=== PATIENT | female | born 1955 | race Caucasian/White ===

== ENCOUNTER 2020-03-16 06:16 | Outpatient (CLI) | payer OTHER, SELFPAY ==
[2020-03-16 16:38] LABS: SARS-CoV-2 RNA PCR Negative
== END 2020-03-16 06:17 | disposition home or self-care (01) ==
LOC: ANHCOVIDDT 06:16
PROVIDERS: PCP Internal Medicine; Visit Provider Internal Medicine Gastroenterology
DX: Z01.818 Encounter for other preprocedural examination (principal); Z11.59 Encounter for screening for other viral diseases
CPT/HCPCS: 87635; C9803; U0003

== ENCOUNTER 2020-03-18 01:01 | Day surgery (SDC) | payer OTHER, BC, SELFPAY ==
[2020-03-11 12:38] VITALS: BMI 25.9
[2020-03-18 09:20] VITALS: BP 167/87; PULSE 73; RESP 16; TEMP 36.6; O2SAT 100
[2020-03-18] MEDS: LACTATED RINGERS 1,000 ML 150 ML IV CONT (09:34)
[2020-03-18 09:38] LABS: Glucose Point of Care 94 (65-105)
--- NOTE | 2020-03-18 09:42 | WPDANESEPPF ---
Anes - Initial Pre Proc Eval Procedure: Operation Date: 03/18/20 10:30 Proposed Procedures p Screening Colonoscopy - Asif Villatoro MD Date/Time: 03/18/20 09:42 Surgeon: Asif Villatoro MD Pre Op Diagnosis: neoplasm screening Patient Data Age: 64 Gender: F Height: 5 ft 7 in Weight: 76.6 kg Last Vital Signs Temp 36.6 C 03/18/20 09:20 Pulse 73 03/18/20 09:20 Resp 16 03/18/20 09:20 BP 167/87 H 03/18/20 09:20 Pulse Ox 100 03/18/20 09:20 Allergies Allergy/AdvReac Type Severity Reaction Status Date / Time No Known Allergies Allergy Verified 03/18/20 09:19 Home Medications Medication Instructions Recorded Confirmed Type multivitamin 1 tablet PO DAILY 12/21/19 03/18/20 History omega-3 fatty acids 1,000 mg 1,000 mg PO DAILY 12/21/19 03/18/20 History capsule folic acid 1 mg tablet 2 mg PO DAILY 01/06/20 03/18/20 History ibuprofen 800 mg tablet 800 mg PO TID 01/06/20 03/18/20 History levothyroxine 88 mcg tablet 88 mcg PO DAILY 01/06/20 03/18/20 History metformin 500 mg tablet 500 mg PO .COMPLEX 01/06/20 03/18/20 History methotrexate sodium 2.5 mg tablet 8 mg PO WEEKLY tablet 01/06/20 03/18/20 History rosuvastatin 40 mg tablet 20 mg PO DAILY 01/06/20 03/18/20 History spironolactone 100 mg tablet 100 mg PO DAILY 01/06/20 03/18/20 History zolpidem 10 mg tablet 10 mg PO ONCE PRN #30 tablet 01/07/20 03/18/20 Rx magnesium 30 mg PO DAILY 03/14/20 03/18/20 History Laboratory Tests 03/18/20 09:34 POC Capillary Glucose 94 mg/dl mg/dl (65-105) Patient hx anesthesia problems: none Family hx anesthesia problems: none PMFSH Family History Family History Mother Family history of osteoarthritis Family history of heart disease in male family member before age 55 Grandparent Family history of malignant neoplasm of breast Family history of coronary artery disease Father Family history of coronary artery disease Social History Social History Smoking status: Never smoker Second hand tobacco smoke exposure: No Alcohol intake: current Anes - Eval Final PreProcedure Day of Procedure 03/18/20 09:42 Patient weight: overweight Heart: regular rate and rhythm Lungs: clear to auscultation Airway: Mallampati scale class II Neurological: other (alert) Last oral intake: >/= 8 hours ASA classification: III Emergent: no Anesthetic plan: proceed Anesthesia type and monitoring: general GIVS and standard monitoring Informed Consent: The patient's anesthetic plan and its attendant risks and benefits were discussed with the patient/family/POA. Questions were solicited and answers provided to the satisfaction of the patient/family/POA.
--- NOTE | 2020-03-18 10:02 | PM.HPGS ---
History of Present Illness History of Present Illness Consent: Risks, benefits, and alternatives have been discussed and questions answered. Patient agrees to proceed with procedure. Chief complaint: neoplasm screening Narrative: Vamshi Navas is a 64 year old female Having screening colonoscopy [facility] Family History Family History Mother Family history of osteoarthritis Family history of heart disease in male family member before age 55 Grandparent Family history of malignant neoplasm of breast Family history of coronary artery disease Father Family history of coronary artery disease Social History Social History Smoking status: Never smoker Second hand tobacco smoke exposure: No Alcohol intake: current Meds Home Medications and Allergies Home Medications Medication Instructions Recorded Confirmed Type multivitamin 1 tablet PO DAILY 12/21/19 03/18/20 History omega-3 fatty acids 1,000 mg 1,000 mg PO DAILY 12/21/19 03/18/20 History capsule folic acid 1 mg tablet 2 mg PO DAILY 01/06/20 03/18/20 History ibuprofen 800 mg tablet 800 mg PO TID 01/06/20 03/18/20 History levothyroxine 88 mcg tablet 88 mcg PO DAILY 01/06/20 03/18/20 History metformin 500 mg tablet 500 mg PO .COMPLEX 01/06/20 03/18/20 History methotrexate sodium 2.5 mg tablet 8 mg PO WEEKLY tablet 01/06/20 03/18/20 History rosuvastatin 40 mg tablet 20 mg PO DAILY 01/06/20 03/18/20 History spironolactone 100 mg tablet 100 mg PO DAILY 01/06/20 03/18/20 History zolpidem 10 mg tablet 10 mg PO ONCE PRN #30 tablet 01/07/20 03/18/20 Rx magnesium 30 mg PO DAILY 03/14/20 03/18/20 History Allergies Allergy/AdvReac Type Severity Reaction Status Date / Time No Known Allergies Allergy Verified 03/18/20 09:19 Vital Signs Vital Signs - 24 hr 03/18/20 09:20 Temperature 36.6 C Pulse Rate 73 Respiratory Rate 16 Blood Pressure 167/87 H Pulse Oximetry 100 Exam Resp: Auscultation: clear to auscultation bilaterally Cardio: Rate: regular rate Rhythm: regular rhythm GI: GI Palp: Yes Soft to palpation and No Tenderness to palpation present (GI) Assessment and Plan Assessment and plan (1) Colon cancer screening: Code(s): Z12.11 - Encounter for screening for malignant neoplasm of colon Status: Acute Assessment and Plan: Colonoscopy with possible biopsy or polypectomy or cautery or injection of substances.
[2020-03-18 10:50] VITALS: BP 93/56; PULSE 62; RESP 21; O2SAT 97
[2020-03-18 11:00] VITALS: BP 122/68; PULSE 65; RESP 17; O2SAT 100
[2020-03-18 11:10] VITALS: BP 133/66; PULSE 57; RESP 17; O2SAT 100
== END 2020-03-18 11:30 | disposition home or self-care (01) ==
PROVIDERS: PCP Internal Medicine; Visit Provider Internal Medicine Gastroenterology
PROC: 0DJD8ZZ Inspection of Lower Intestinal Tract, Via Natural or Artificial Opening Endoscopic (ICD-10-PCS; CPT 45378; principal; 2020-03-18 10:30)
DX: Z12.11 Encounter for screening for malignant neoplasm of colon (principal); K57.30 Diverticulosis of large intestine without perforation or abscess without bleeding; Z79.84 Long term (current) use of oral hypoglycemic drugs; Z79.1 Long term (current) use of non-steroidal anti-inflammatories (NSAID)
CPT/HCPCS: 45378; J2704; J7120

== ENCOUNTER 2020-07-07 07:48 | Outpatient (CLI) | payer OTHER, BC, SELFPAY ==
[2020-07-07 09:20] LABS: Basophils Percent Auto 0.6 % (0.2-1.2); Eosinophils Absolute Auto 0.2 K/mm3 (0-0.3); Eosinophils Percent Auto 2.9 % (0-4.4); Hematocrit 41.3 % (37.0-47.0); Immature Granulocyte Absolute 0.02 K/mm3 (0.00-0.031); Immature Granulocyte Percent A 0.3 % (0-0.5); Lymphocytes Absolute Auto 1.64 K/mm3 (0.9-3.2); Lymphocytes Percent Auto 24.1 % (18.3-44.2); Mean Corpuscular HGB Conc 33.9 g/dl (32-36); Mean Corpuscular Hemoglobin 31.6 pg (26-34); Mean Corpuscular Volume 93.2 fl (80-100); Mean Platelet Volume 9.1 fl (7.4-10.4); Monocytes Absolute Auto 0.5 K/mm3 (0.1-0.6); Monocytes Percent Auto 6.9 % (2.6-8.5); Neutrophils Absolute Auto 4.4 K/mm3 (1.3-6.7); Neutrophils Percent Auto 65.2 % (45.5-73.1); Platelet Count Result 334 k/mm3 (150-375); Red Blood Count 4.43 M/mm3 (4.2-5.4); Red Cell Distribution Width 13.3 % (11.5-14.5); White Blood Count 6.8 K/mm3 (4.5-10.0)
[2020-07-07 09:24] LABS: Add Urine Microscopic? YES; Appearance Urine Clear (Clear); Bilirubin Urine Negative (Negative); Blood Urine Negative (Negative); Color Urine Yellow (Yellow); Glucose Urine UA Negative (Negative); Ketones Urine Negative (Negative); Leukocyte Esterase Ur Negative LEU/UL (Negative); Nitrate Urine Negative (Negative); Protein Urine 1+ mg/dL (Negative); RBC Urine 0-2 /hpf (0-2); Specific Grav Ur 1.017 (1.001-1.035); Squamous Epithelial Cell Urine Rare /hpf (Few); Urobilinogen Urine Negative mg/dL (<2.0); WBC Urine 0-3 /hpf
[2020-07-07 09:30] LABS: Urine Cotinine NEGATIVE
[2020-07-07 09:31] LABS: Albumin Level 4.7 g/dL (3.5-5.1); Anion Gap 8 mmol/L (8-16); Blood Urea Nitrogen 15 mg/dL (7-17); Calcium 9.6 mg/dL (8.4-10.2); Carbon Dioxide 27 mmol/L (22-30); Chloride 102 mmol/L (98-107); Estimated Glomerular Filt Rate > 60; Glucose 145 mg/dL (65-105); Prothrombin Time 12.5 Seconds (11.1-14.7); Sodium 137 mmol/L (137-145)
[2020-07-07 09:32] LABS: Partial Thromboplastin Time 25.3 SECONDS (22.3-36.8)
== END 2020-07-07 07:49 | disposition home or self-care (01) ==
LOC: ANHSURGERY 07:51
PROVIDERS: PCP Internal Medicine; Visit Provider Orthopaedic Surgery
DX: M16.12 Unilateral primary osteoarthritis, left hip (principal); Z01.812 Encounter for preprocedural laboratory examination
CPT/HCPCS: 36415; 80048; 80307; 81001; 82040; 85025; 85610; 85730; 86850; 86900; 86901; 87081

== ENCOUNTER 2020-07-18 00:10 | Outpatient (CLI) | payer OTHER, BC, SELFPAY ==
[2020-07-18 16:39] LABS: SARS-CoV-2 RNA PCR Negative
== END 2020-07-18 00:11 | disposition home or self-care (01) ==
LOC: ANHCOVIDDT 00:10
PROVIDERS: PCP Internal Medicine; Visit Provider Orthopaedic Surgery
DX: Z01.812 Encounter for preprocedural laboratory examination (principal); Z20.828 Contact with and (suspected) exposure to other viral communicable diseases
CPT/HCPCS: 87635; C9803; U0003

== ENCOUNTER 2020-07-20 10:57 | Inpatient (IN) | payer BC, SELFPAY ==
[2020-07-07 08:14] VITALS: BMI 27.5
[2020-07-07 09:00] VITALS: BP 122/74; PULSE 80; RESP 16; TEMP 36.6; O2SAT 99
--- NOTE | 2020-07-19 17:40 | WPDANESEPP ---
Anes - Eval Pre Procedure Procedure: Operation Date: 07/20/20 07:30 Proposed Procedures p Left Total Hip Arthroplasty - Jackson Eastman MD Date/Time: 07/19/20 17:40 Pre Op Diagnosis: Left Hip DJD Patient Data Age: 65 Gender: F Height: 5 ft 6 in Weight: 77.3 kg Last Vital Signs Temp 97.8 F 07/07/20 09:00 Pulse 80 07/07/20 09:00 Resp 16 07/07/20 09:00 BP 122/74 07/07/20 09:00 Pulse Ox 99 07/07/20 09:00 Allergies Allergy/AdvReac Type Severity Reaction Status Date / Time No Known Allergies Allergy Verified 07/07/20 10:01 Home Medications Medication Instructions Recorded Confirmed Type multivitamin 1 tablet PO DAILY 12/21/19 07/13/20 History omega-3 fatty acids 1,000 mg 1,000 mg PO DAILY 12/21/19 07/13/20 History capsule folic acid 1 mg tablet 2 mg PO DAILY 01/06/20 07/13/20 History ibuprofen 800 mg tablet 800 mg PO TID 01/06/20 07/13/20 History methotrexate sodium 2.5 mg tablet 8 mg PO WEEKLY tablet 01/06/20 07/13/20 History spironolactone 100 mg tablet 100 mg PO DAILY 01/06/20 07/13/20 History magnesium 30 mg PO DAILY 03/14/20 07/13/20 History cholecalciferol (vitamin D3) 100 100 mcg PO DAILY 05/03/20 07/13/20 History mcg (4,000 unit) capsule flaxseed oil 1,000 mg capsule 1,000 mg PO DAILY 05/03/20 07/13/20 History chlorhexidine gluconate 4 % 1 applic TOPICAL ONCE #237 ml 05/12/20 07/13/20 Rx topical liquid diclofenac sodium [Voltaren] 2 g TOPICAL BID 07/07/20 07/13/20 History melatonin 3 mg PO HS PRN 07/07/20 07/13/20 History levothyroxine 88 mcg tablet 88 mcg PO DAILY #90 tablet 07/13/20 07/13/20 Rx metformin 500 mg tablet 500 mg PO .COMPLEX #270 tablet 07/13/20 07/13/20 Rx rosuvastatin 40 mg tablet 20 mg PO DAILY #90 tablet 07/13/20 07/13/20 Rx zolpidem 10 mg tablet 10 mg PO PRN PRN #30 tablet 07/13/20 07/13/20 Rx Patient hx anesthesia problems: none Family hx anesthesia problems: none [facility] Past Medical History Medical History (Updated 07/19/20 @ 17:41 by Sarabjit Morris CRNA) Adult hypothyroidism Arthritis Degenerative joint disease of left hip High cholesterol Left hip pain Mixed hyperlipidemia Ptosis of both eyelids Rheumatoid arthritis Status post hysteroscopy Type 2 diabetes mellitus without complication, with no history of insulin use Family History Family History Mother Family history of osteoarthritis Family history of heart disease in male family member before age 55 Grandparent Family history of malignant neoplasm of breast Family history of coronary artery disease Father Family history of coronary artery disease Other Diabetes mellitus Heart disease Social History Social History Smoking status: Never smoker Second hand tobacco smoke exposure: No Additional smoking assessment comments: DENIES ANY FORM OF TOBACCO USE Alcohol intake: current Drinks per week: 4 Substance use: never Spiritual care concerns: No Exam Day of Procedure 07/19/20 17:40
[2020-07-20] VITALS (12 sets, daily range): BP systolic 96–159; BP diastolic 51–77; PULSE 63–88; RESP 12–21; TEMP 36–36.9; O2SAT 100; BMI 27.8
--- NOTE | ~2020-07-20 | XR_ITS ---
EXAMINATION: XR hip LT 1V DATE: 07/20/2020 10:12 INDICATION: Left hip arthroplasty TECHNIQUE: AP view of the left hip FINDINGS: There is a left total hip arthroplasty in expected position. Subcutaneous gas with soft ti ssue swelling are consistent with recent surgery. IMPRESSION: 1. Recent left total hip arthroplasty. Reviewed, dictated and finalized at location B.
[2020-07-20] MEDS: LACTATED RINGERS 1,000 ML 30 ML IV CONT ×2 (06:36→10:00)
[2020-07-20] MEDS: KETOROLAC 15 MG/ML VIAL (*BKC) IV PUSH (06:36)
[2020-07-20] MEDS: ACETAMINOPHEN 500 MG TABLET 1000 MG PO (06:36)
[2020-07-20] MEDS: TRANEXAMIC ACID 1,000MG/ISO100 1,000 MG/100 ML BAG 200 MG IVPB (06:37)
--- NOTE | 2020-07-20 06:51 | WPDANESEFPP ---
Anes - Eval Final PreProcedure Day of Procedure 07/20/20 06:51 Patient weight: overweight Heart: regular rate and rhythm Lungs: clear to auscultation and normal air movement Airway: Mallampati scale class III Neurological: alert and oriented Last oral intake: >/= 8 hours ASA classification: III Emergent: no Anesthetic plan: proceed Anesthesia type and monitoring: general ETT and standard monitoring Informed Consent: The patient's anesthetic plan and its attendant risks and benefits were discussed with the patient/family/POA. Questions were solicited and answers provided to the satisfaction of the patient/family/POA.
[2020-07-20 06:52] LABS: Glucose Point of Care 142 (65-105)
--- NOTE | 2020-07-20 07:14 | WPDHPUPDATE1 ---
History and Physical Update Update Date/Time: 07/20/20 07:14 History and Physical has been reviewed, including an updated exam of the patient. There are NO changes in the patient's condition. Risks, benefits, and alternatives have been discussed and questions answered. Patient agrees to proceed with procedure.
[2020-07-20] MEDS: ceFAZolin 2 GM/D5W 50 ML 2 GM/50 ML BAG IVPB ×3 (07:33→23:33)
--- NOTE | 2020-07-20 10:08 | SUR.PHASEI ---
1007 1 VIEW XRAY TAKEN OF LT HIP.
--- NOTE | 2020-07-20 10:14 | PM.PROC ---
Procedure Note - Detailed Date of procedure: 07/20/20 Pre-op diagnosis: Left Hip DJD LEFT HIP DJD Post-op diagnosis: same Procedure performed: LEFT AUTUMN Description of procedure: THE PATIENT WAS TAKEN TO THE OPERATING ROOM IN STABLE CONDITION. SHE WAS PLACED IN THE LATERAL DECUBITUS AND THE LEFT LOWER EXTREMITY WAS PREPPED AND DRAPED IN THE STERILE FASHION. INCISION WAS MADE IN THE POSTERIOR LATERAL SIDE OF THE HIP, DOWN TO THE FASCIA LAYER. THE FASCIA WAS INCISED. THE HIP WAS EXPOSED. THE SHORT EXTERNAL ROTATORS WERE EXPOSED AND THE SCIATIC NERVE WAS VISUALIZED. THE CAPSULE WAS INCISED EXPOSING THE HIP JOINT. THE HIP WAS DISLOCATED. AN OSTEOTOMY WAS MADE TO THE FEMORAL NECK ABOUT 1 CM PROXIMAL TO THE LESSER TROCHANTER. THE ACETABULUM WAS EXPOSED. THERE WAS SEVERE DJD SEEN. THE ACETABULUM WAS REAMED TO 49 MM. A 49 MM TRIAL WAS PLACED IN 35 DEG OF ABDUCTION AND ANTEVERSION WAS IN ALIGNMENT WITH THE TRANS ACETABULAR LIGAMENT. THE FIT WAS EXCELLENT. THE TRIAL WAS REMOVED. A 50 MM BIOMET G7 COMPONENT WAS THEN TAPPED IN TO PLACE IN 35 DEG OF ABDUCTION AND ANTEVERSION IN ALIGNMENT WITH THE TRANSVERSE ACETABULAR LIGAMENT. THE ACETABULAR LINER WAS PLACED AND CHECKED FOR STABILITY. NEXT THE FEMUR WAS PREPARED WITH INITIAL CANAL FINDER THEN SEQUENTIAL REAMING AND THEN BROACHING TILL AN 11 BROACH FIT WELL IN 15 OF ANTE VERSION. A +3 STANDARD OFFSET NECK WITH 36 MM HEAD TRIAL WAS PLACED. THE JARED TEST WAS EXCELLENT AND THE STABILITY IN FLEXION AND ROTATION WAS EXCELLENT. LEG LENGTHS WERE GROSSLY EQUAL. TRIALS WERE REMOVED. A BIOMET BIMETRIC 11 STEM WAS PLACED WITH A STANDARD OFFSET NECK. THE FIT WAS EXCELLENT IN 15 DEG OF ANTEVERSION. A +3 CERAMIC 36 MM FEMORAL HEAD WAS PLACED. THE HIP WAS TRIALED AND THE STABILITY WAS EXCELLENT WERE THE LEG LENGTHS AND THE SCHUK TEST. THE WOUND WAS IRRIGATED WITH STERILE BETADINE AND WATER FOR 3 MIN. THEN WASHED AGAIN. THE CAPSULE AND THE EXTERNAL ROTATORS WERE APPROXIMATED WITH NUMBER 1 VICRYL. THE FASCIA WITH No 2 QUIL AND THE SUB CUTANEOUS LAYER WITH 2-0 ABSORBABLE SUTURE WITH A RUNNING 3-0 SUBCUTICULAR LAYER WELL. DERMABOND WAS PLACED AND STERILE DRESSING WAS APPLIED. PATIENT WAS PLACED BACK ON TO THE SUPINE POSITION AND WAS EXTUBATED. Anesthesia: GETA Surgeon: Jackson Eastman MD Estimated blood loss (mL): 450 Drains: No Complications: No immediate complications Condition: stable Disposition: PACU
[2020-07-20 10:18] LABS: Glucose Point of Care 169 (65-105)
--- NOTE | 2020-07-20 11:03 | ADMGEN ---
This patient, Vamshi Navas, was admitted to 2 Medical Room 253-01. Patient/family oriented to hospital policies and general routines including ID bracelet, bed and alarms, visiting hours, pain management, procedures, bathroom and other care routines, personal items, smoking policy, room service/diet, and visiting hours. Valuables list has been completed. Information on how to activate the Rapid Response Team has been discussed. Patient/Family are encouraged to report perceived risks to care and to ask questions if they do not understand what they are told or what they should do.
[2020-07-20 11:21] LABS: Hematocrit 36.4 % (37.0-47.0); Hemoglobin 12.7 g/dL (12.0-15.0)
[2020-07-20] MEDS: HYDROcodone/acetaminophen (*CRX) 7.5-325 MG TABLET 1 TAB PO ×3 (11:50→21:18)
[2020-07-20] MEDS: SODIUM CHLORIDE 0.9% IV 1,000 ML 125 ML IV CONT (11:50)
--- NOTE | 2020-07-20 13:06 | PM.IMCN ---
Assessment and Plan Assessment and plan (1) History of total left hip arthroplasty: Code(s): Z96.642 - Presence of left artificial hip joint Status: Acute Assessment and Plan: Patient has bilateral SCDs on. DVT prophylaxis per ortho. Postop care per Ortho. Pain management per Ortho. (2) Rheumatoid arthritis: Code(s): M06.9 - Rheumatoid arthritis, unspecified Status: Chronic Assessment and Plan: Patient has a operations administrative assistant that she follows. She is on methotrexate. (3) Adult hypothyroidism: Code(s): E03.9 - Hypothyroidism, unspecified Status: Chronic Assessment and Plan: Continue with Synthroid. (4) Hypothyroidism: Code(s): E03.9 - Hypothyroidism, unspecified Status: Chronic (5) Mixed hyperlipidemia: Code(s): E78.2 - Mixed hyperlipidemia Status: Chronic Assessment and Plan: Continue with rosuvastatin (6) Acne: Code(s): L70.9 - Acne, unspecified Status: Chronic Assessment and Plan: continue spironolactone. HPI Data of Consult Consult date: 07/20/20 Requesting Physician: Jackson Eastman MD Primary Care Provider: Jc Durham DO Consult Narrative Narrative: Vamshi Navas is a 65 year old female Who has a history of having rheumatoid arthritis. The patient has been having some problems with her left hip clicking for at least 2 years now. The patient stated that she tried some exercises at 1st. She saw her operations administrative assistant who suggested some exercises because he felt like she was having some bursitis in the beginning. After several months she decided was not bursitis and she followed up with her primary care doctor who then took x-rays discovered that she had severe osteoarthritis. 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 She has not been exposed to covid 19. She has had a full surgical clearance. Please see the operative report for today she had a left total hip arthroplasty per Dr. Eastman today posterior procedure. I thank Dr. Eastman for the opportunity to consult on this patient. The date of service 07/20/2020 Review of Systems Review of Systems: All systems reviewed & are unremarkable except as noted in HPI and below Constitutional: Constitutional: Reports as per HPI and Reports no additional constitutional complaints Eyes: Eyes: Reports as per HPI and Reports no additional eye complaints ENT: Reports system reviewed and no additional complaints, except as documented and Reports Normal hearing present Cardiovascular: Cardiovascular: Reports no additional cardiovascular complaints Respiratory: Respiratory: Reports no additional respiratory complaints and Reports no additional respiratory complaints Gastrointestinal: Gastrointestinal: Reports as per HPI and Reports no additional gastrointestinal complaints Musculoskeletal: Musculoskeletal: Reports no additional musculoskeletal complaints Integumentary/Breasts: Skin/Breast: Reports system reviewed and no additional complaints, except as docu and Reports as per HPI Neurologic: Reports system reviewed and no additional complaints, except as documented, Reports as per HPI and Reports Normal hearing present Psychiatric: Psychiatric: Reports no additional psychiatric complaints and Reports as per HPI Endocrine: Endocrine: Reports no additional endocrine complaints Hematologic/Lymphatic: Hematologic/Lymphatic: Reports no additional hematologic/lymphatic complaints Allergic/Immunologic: Allergic/Immunologic: Reports no additional allergic/immunologic complaints [facility] Past Medical History Medical History (Updated 07/20/20 @ 13:13 by Any Arriaga NP) Acne Adult hypothyroidism Arthritis Degenerative joint disease of left hip High cholesterol Left hip pain Mixed hyperlipidemia Mixed hyperlipidemia Ptosis of both eyelids surgery to fix her eyes. Rheumatoid arthritis
[2020-07-20] MEDS: ONDANSETRON INJ 4 MG/2 ML VIAL IV PUSH (14:42)
[2020-07-20 16:38] LABS: Glucose Point of Care 226 (65-105)
[2020-07-20] MEDS: metFORMIN HCL 500 MG TABLET PO (16:38)
[2020-07-20] MEDS: DOCUSATE SODIUM 100 MG CAPSULE PO (16:38)
[2020-07-20] MEDS: INSULIN ASPART (*BKC) 100 UNITS/ML SUB-Q (16:39)
[2020-07-20] MEDS: FAMOTIDINE 20 MG TABLET PO (21:18)
[2020-07-20 22:22] LABS: Glucose Point of Care 177 (65-105)
[2020-07-21 02:00] VITALS: BP 115/52; PULSE 80; RESP 20; TEMP 37.1; O2SAT 99
[2020-07-21] MEDS: HYDROcodone/acetaminophen (*CRX) 7.5-325 MG TABLET 1 TAB PO ×3 (02:05→11:35)
[2020-07-21 05:53] LABS: Basophils Percent Auto 0.2 % (0.2-1.2); Eosinophils Percent Auto 0.1 % (0-4.4); Hematocrit 32.3 % (37.0-47.0); Immature Granulocyte Absolute 0.05 K/mm3 (0.00-0.031); Immature Granulocyte Percent A 0.4 % (0-0.5); Lymphocytes Absolute Auto 1.72 K/mm3 (0.9-3.2); Lymphocytes Percent Auto 13.5 % (18.3-44.2); Mean Corpuscular HGB Conc 34.1 g/dl (32-36); Mean Corpuscular Hemoglobin 31.3 pg (26-34); Mean Platelet Volume 9.6 fl (7.4-10.4); Monocytes Absolute Auto 1.4 K/mm3 (0.1-0.6); Monocytes Percent Auto 11.1 % (2.6-8.5); Neutrophils Absolute Auto 9.5 K/mm3 (1.3-6.7); Neutrophils Percent Auto 74.7 % (45.5-73.1); Platelet Count Result 345 k/mm3 (150-375); Red Blood Count 3.51 M/mm3 (4.2-5.4); Red Cell Distribution Width 13.4 % (11.5-14.5); White Blood Count 12.7 K/mm3 (4.5-10.0)
[2020-07-21 05:57] LABS: Anion Gap 8 mmol/L (8-16); Blood Urea Nitrogen 12 mg/dL (7-17); Calcium 9.1 mg/dL (8.4-10.2); Carbon Dioxide 26 mmol/L (22-30); Chloride 100 mmol/L (98-107); Estimated CRCL calculation 65 ml/min; Estimated Glomerular Filt Rate > 60; Glucose 151 mg/dL (65-105); Potassium 3.9 mmol/L (3.4-5.0); Sodium 134 mmol/L (137-145)
[2020-07-21 06:00] VITALS: BP 121/58; PULSE 83; RESP 21; TEMP 36.7; O2SAT 100
[2020-07-21] MEDS: LEVOTHYROXINE SODIUM 88 MCG TABLET PO (06:33)
[2020-07-21] MEDS: ceFAZolin 2 GM/D5W 50 ML 2 GM/50 ML BAG IVPB (06:33)
[2020-07-21 07:42] LABS: Glucose Point of Care 158 (65-105)
[2020-07-21] MEDS: FAMOTIDINE 20 MG TABLET PO (08:32)
[2020-07-21] MEDS: SPIRONOLACTONE 50 MG TABLET 100 MG PO (08:33)
[2020-07-21] MEDS: ASPIRIN 325 MG ENTERIC TABLET 650 MG PO (08:33)
[2020-07-21] MEDS: ROSUVASTATIN 10 MG TABLET 20 MG PO (08:33)
[2020-07-21] MEDS: CELECOXIB 200 MG CAPSULE PO (08:33)
[2020-07-21] MEDS: metFORMIN HCL 500 MG TABLET 1000 MG PO (08:33)
[2020-07-21] MEDS: DOCUSATE SODIUM 100 MG CAPSULE PO ×2 (08:34→16:10)
--- NOTE | 2020-07-21 08:48 | PM.PNORT ---
Progress Note: A&P Assessment and Plan (1) History of total left hip arthroplasty: Code(s): Z96.642 - Presence of left artificial hip joint Status: Acute Assessment and Plan: POD #1: LEFT AUTUMN Continue PT/OT. WBAT. Walker. Fall Risk. Continue pain control. Ice lateral hip. Continue to monitor dressing. Change prior to discharge. Continue DVT prophylaxis. Reviewed incentive spirometry use. Continue SCDs. Dispo: Home with Home Health pending progress with PT/OT. (2) Rheumatoid arthritis: Qualifiers: Rheumatoid arthritis location: multiple sites Rheumatoid factor presence: with rheumatoid factor Qualified Code(s): M05.79 - Rheumatoid arthritis with rheumatoid factor of multiple sites without organ or systems involvement Code(s): M06.9 - Rheumatoid arthritis, unspecified Status: Chronic Subjective Subjective Date/Time Seen: 07/21/20 08:48 POD#1: Left AUTUMN No new complaints. Feeling well this AM. Worked well with OT. Awaiting PT. Would like to go home today if progressing well with PT/OT. Review of Systems Constitutional: Constitutional: Denies chills, Denies fatigue, Denies fever(s), Denies night sweats and Denies weakness Cardiovascular: Cardiovascular: Denies chest pain, Denies lightheadedness and Denies palpitations Respiratory: Respiratory: Denies cough, Denies dyspnea and Denies wheezing Gastrointestinal: Gastrointestinal: Denies abdominal pain, Denies diarrhea, Denies nausea and Denies vomiting Musculoskeletal: Musculoskeletal: Reports arthralgias (left hip ), Reports joint swelling (left hip ) and Denies numbness Exam Const: General: comfortable and no acute distress Resp: Effort & Inspection: normal respiratory effort Cardio: Rate: regular rate Rhythm: regular rhythm GI: Inspection: non-distended Skin: General skin exam: normal color Wounds: wounds noted (incision left hip C/D/I ) Extrem: Right lower extremity: normal to inspection, full ROM and normal capillary refill Left lower extremity: hip/thigh Details: tenderness Location: of the hip Location: laterally and anteriorly, swelling (thigh soft ) Location: of the hip (lateral. ), abnormal ROM (limitations with internal/external rotation and flexion/extension due to recent surgical intervention ) and other (incision lateral hip c/d/i. ), knee Details: normal to inspection and normal ROM; no tenderness and no swelling, lower leg (Negative Mark's Sign ) Details: no edema, ankle (+ankle dorsiflexion/plantarflexion ) Details: normal to inspection, no edema and normal ROM; no tenderness, no swelling and no warmth and foot Details: normal capillary refill, toes with normal ROM, vascular exam Details: dorsalis pedis pulse present and motor-sensory exam light-touch normal in all toes; no tenderness, no ecchymosis and no crepitus Psych: Mental Status: mental status grossly normal Affect: normal affect Objective Data Vital Signs Vital Signs: Vital Signs - 24 hr 07/20/20 10:00 07/20/20 10:15 07/20/20 10:30 Temperature 36.3 C L Pulse Rate 65 71 64 Respiratory Rate 14 12 12 Blood Pressure 96/51 L 126/72 122/73 Pulse Oximetry 100 100 100 07/20/20 10:45 07/20/20 10:55 07/20/20 10:57 Temperature 36.1 C L 36.0 C L Pulse Rate 63 64 69 Respiratory Rate 12 12 15 Blood Pressure 124/71 124/70 142/71 H Pulse Oximetry 100 100 100 07/20/20 11:12 07/20/20 11:42 07/20/20 12:42 Temperature 36.4 C L 36.4 C 36.6 C Pulse Rate 64 75 74 Respiratory Rate 17 15 15 Blood Pressure 117/63 134/57 L 111/64 Pulse Oximetry 100 100 100 07/20/20 17:00 07/20/20 22:00 07/21/20 02:00 Temperature 36.9 C 36.7 C 37.1 C Pulse Rate 82 88 80 Respiratory Rate 17 21 H 20 Blood Pressure 123/70 136/69 115/52 L Pulse Oximetry 100 100 99 07/21/20 06:00 Temperature 36.7 C Pulse Rate 83 Respiratory Rate 21 H Blood Pressure 121/58 L Pulse Oximetry 100 Intake/Output Intake/Output: Intake & Output 07/18/20
[2020-07-21 10:00] VITALS: BP 106/64; PULSE 81; RESP 14; TEMP 36.8; O2SAT 99
--- NOTE | 2020-07-21 11:04 | P.PNAN_ITS ---
Anes - Prog Note Post-Op Date/Time: 07/21/20 11:04 Cardiovascular status: normal Respiratory status: normal Airway patency: baseline Mental status: baseline Post-Op hydration status: normal Vital Signs: Last Vital Signs Temp 36.8 C 07/21/20 10:00 Pulse 81 07/21/20 10:00 Resp 14 07/21/20 10:00 BP 106/64 07/21/20 10:00 Pulse Ox 99 07/21/20 10:00 Pain Score (VAS): 3 I/O: Intake & Output 07/20/20 07/21/20 07/21/20 23:59 07:59 15:59 Intake Total 954 850 240 Output Total 300 1100 Balance 654 -250 240 Laboratory Tests 07/21/20 05:20 07/21/20 05:20 07/20/20 07/20/20 07/20/20 11:10 16:35 22:12 WBC RBC Hgb 12.7 Hct 36.4 L MCV MCH MCHC RDW Plt Count MPV Immature Gran % (Auto) Neut % (Auto) Lymph % (Auto) Coleman % (Auto) Eos % (Auto) Baso % (Auto) Lymph # (Auto) Coleman # (Auto) Eos # (Auto) Baso # (Auto) Abs Immat Gran (auto) Absolute Neuts (auto) Absolute Nucleated RBC Nucleated RBC % Sodium Potassium Chloride Carbon Dioxide Anion Gap BUN Creatinine Estim Creat Clear Calc Estimated GFR Glucose POC Capillary Glucose 226 H 177 H Calcium 07/21/20 07/21/20 07/21/20 05:20 05:20 07:37 WBC 12.7 H RBC 3.51 L Hgb 11.0 L Hct 32.3 L MCV 92.0 MCH 31.3 MCHC 34.1 RDW 13.4 Plt Count 345 MPV 9.6 Immature Gran % (Auto) 0.4 Neut % (Auto) 74.7 H Lymph % (Auto) 13.5 L Coleman % (Auto) 11.1 H Eos % (Auto) 0.1 Baso % (Auto) 0.2 Lymph # (Auto) 1.72 Coleman # (Auto) 1.4 H Eos # (Auto) 0.0 Baso # (Auto) 0.0 Abs Immat Gran (auto) 0.05 H Absolute Neuts (auto) 9.5 H Absolute Nucleated RBC 0.0 Nucleated RBC % 0.0 Sodium 134 L Potassium 3.9 Chloride 100 Carbon Dioxide 26 Anion Gap 8 BUN 12 Creatinine 0.80 Estim Creat Clear Calc 65 Estimated GFR > 60 Glucose 151 H POC Capillary Glucose 158 H Calcium 9.1 Post-procedural complaints: none Patient Feedback: Patient satisfied with anesthetic care.
[2020-07-21 11:35] LABS: Glucose Point of Care 168 (65-105)
--- NOTE | 2020-07-21 13:22 | PM.IMPN ---
Progress Note: A&P Assessment and Plan (1) History of total left hip arthroplasty: Code(s): Z96.642 - Presence of left artificial hip joint Status: Acute Assessment and Plan: Hopeful discharge today by orthopedics. Pt is medically stable for discharge, pt to continue her current medications. Other Postop care and pain management and DVT prop per Ortho. 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 She is on methotrexate. (3) Adult hypothyroidism: Code(s): E03.9 - Hypothyroidism, unspecified Status: Chronic Assessment and Plan: Continue with Synthroid. (4) Mixed hyperlipidemia: Code(s): E78.2 - Mixed hyperlipidemia Status: Chronic Assessment and Plan: Continue with rosuvastatin. (5) Acne: Code(s): L70.9 - Acne, unspecified Status: Chronic Assessment and Plan: Continue spironolactone. Subjective Date/time seen: 07/21/20 13:22 Interval history: Faustinawhit Navas is a 65 year old female Who has a history of having rheumatoid arthritis. Sp left total hip arthroplasty per Dr. Eastman POD day 1. pt is doing well, walking with PT in the halls. Pt has history of hypothyoidism and hyperlipidemia which are both stable. Pt to follow up with her primary care for these chronic conditions. Mild hip pain no other specific complaints. Review of Systems Review of Systems: All systems reviewed & are unremarkable except as noted in HPI and below Cardiovascular: Cardiovascular: Denies no additional cardiovascular complaints Respiratory: Respiratory: Denies no additional respiratory complaints Gastrointestinal: Gastrointestinal: Denies no additional gastrointestinal complaints Musculoskeletal: Comments: mild left hip pain Objective Data Vital Signs Vital Signs: Vital Signs - 24 hr 07/20/20 17:00 07/20/20 22:00 07/21/20 02:00 Temperature 36.9 C 36.7 C 37.1 C Pulse Rate 82 88 80 Respiratory Rate 17 21 H 20 Blood Pressure 123/70 136/69 115/52 L Pulse Oximetry 100 100 99 07/21/20 06:00 07/21/20 10:00 Temperature 36.7 C 36.8 C Pulse Rate 83 81 Respiratory Rate 21 H 14 Blood Pressure 121/58 L 106/64 Pulse Oximetry 100 99 Intake/Output Intake/Output: Intake & Output 07/18/20 07/19/20 07/20/20 07/21/20 23:59 23:59 23:59 23:59 Intake Total 1394 1090 Output Total 300 1100 Balance 1094 -10 Meds/Results Medications: Active Medications Generic Name Dose Route Start Last Admin Trade Name Freq PRN Reason Stop Dose Admin Acetaminophen 650 mg 07/20/20 10:57 Tylenol Tablet PO Q6H PRN Mild Pain (1-3) or Fever Hydrocodone Bitart/Acetaminophen 1 tab 07/20/20 10:57 07/21/20 11:35 [place] 7.5-325 Mg PO 1 tab Q3H PRN Administration Pain Rated 4-6 Aspirin 650 mg 07/21/20 09:00 07/21/20 08:33 Aspirin Ec PO 650 mg DAILY MARISELA Administration Celecoxib 200 mg 07/21/20 09:00 07/21/20 08:33 Celebrex PO 200 mg DAILY MARISELA Administration Dextrose 12.5 gm 07/20/20 13:19 Dextrose 50% Syringe IV PUSH PRN PRN Hypoglycemia Protocol Diazepam 5 mg 07/20/20 10:57 Valium Po PO Q6H PRN Anxiety/Muscle Spasm Docusate Sodium 100 mg 07/20/20 17:00 07/21/20 08:34 Colace Capsule PO 100 mg BID MARISELA Administration Famotidine 20 mg 07/20/20 21:00 07/21/20 08:32 Pepcid PO 20 mg Q12HR MARISELA Administration Glucagon 1 mg 07/20/20 13:19 Glucagon For Inj IM PRN PRN Hypoglycemia Protocol Glucose 15 gm 07/20/20 13:19 Glutose 15 PO PRN P
[2020-07-21 14:00] VITALS: BP 109/67; PULSE 88; RESP 16; TEMP 36.8; O2SAT 100
[2020-07-21] MEDS: metFORMIN HCL 500 MG TABLET PO (16:11)
[2020-07-21 16:25] LABS: Glucose Point of Care 196 (65-105)
--- NOTE | 2020-07-21 17:00 | PM.DS ---
DS: Admitting Diagnosis Admitting Diagnosis Admitting Diagnosis: Left Hip DJD DS: Discharge Diagnosis Discharge Diagnosis (1) History of total left hip arthroplasty: Code(s): Z96.642 - Presence of left artificial hip joint Status: Acute Assessment and Plan: POD #1: LEFT AUTUMN Continue PT/OT. WBAT. Walker. Fall Risk. Continue pain control. Ice lateral hip. Continue to monitor dressing. Change prior to discharge. Continue DVT prophylaxis. Reviewed incentive spirometry use. Continue SCDs. Dispo: Home with Home Health pending progress with PT/OT. (2) Rheumatoid arthritis: Qualifiers: Rheumatoid arthritis location: multiple sites Rheumatoid factor presence: with rheumatoid factor Qualified Code(s): M05.79 - Rheumatoid arthritis with rheumatoid factor of multiple sites without organ or systems involvement Code(s): M06.9 - Rheumatoid arthritis, unspecified Status: Chronic DS: Summary Hospital Course Reason for hospitalization: Left total hip replacement Hospital Course: 55-year-old female admitted status post left total hip replacement for medical stabilization, pain control and physical/occupational therapy. Patient progressed well with therapy and was deemed safe to go home with home health from both a medical and physical therapy standpoint. The patient will follow up in our office in approximately 2 and half weeks and we will transition her to outpatient physical therapy at that time. She will be discharged home on anticoagulation for DVT prevention. She will also be discharged home with pain medication and a stool softener to prevent constipation. We currently have her rheumatoid arthritis medications on hold. We will re-evaluate that and resume those as directed by her core piler and Dr. Eastman. We will follow up with the patient via telephone regarding resuming date. Status at Discharge Functional status at discharge: uses cane/walker Overall status at discharge: patient is progressing back to baseline Time Spent with Patient Time attestation: Total time spent providing and/or coordinating discharge services: Exam Const: General: comfortable and no acute distress Resp: Effort & Inspection: normal respiratory effort Cardio: Rate: regular rate Rhythm: regular rhythm GI: Inspection: non-distended Skin: General skin exam: normal color Wounds: wounds noted (incision left hip C/D/I ) Extrem: Right lower extremity: normal to inspection, full ROM and normal capillary refill Left lower extremity: hip/thigh, knee, lower leg (Negative Mark's Sign ), ankle (+ankle dorsiflexion/plantarflexion ) and foot Psych: Mental Status: mental status grossly normal Affect: normal affect DS: Data Data Completed and Pending Labs on day of discharge: Labs from last 24 hours 07/21/20 07/21/20 07/21/20 16:10 11:33 07:37 WBC RBC Hgb Hct MCV MCH MCHC RDW Plt Count MPV Immature Gran % (Auto) Neut % (Auto) Lymph % (Auto) Stokes % (Auto) Eos % (Auto) Baso % (Auto) Lymph # (Auto) Stokes # (Auto) Eos # (Auto) Baso # (Auto) Abs Immat Gran (auto) Absolute Neuts (auto) Absolute Nucleated RBC Nucleated RBC % Sodium Potassium Chloride Carbon Dioxide Anion Gap BUN Creatinine Estim Creat Clear Calc Estimated GFR Glucose POC Capillary Glucose 196 H 168 H 158 H Calcium 07/21/20 07/21/20 07/20/20 05:20 05:20 22:12 WBC 12.7 H RBC 3.51 L Hgb 11.0 L Hct 32.3 L MCV 92.0 MCH 31.3 MCHC 34.1 RDW 13.4 Plt Count 345 MPV 9.6 Immature Gran % (Auto) 0.4 Neut % (Auto) 74.7 H Lymph % (Auto) 13.5 L Stokes % (Auto) 11.1 H Eos % (Auto) 0.1 Baso % (Auto) 0.2 Lymph # (Auto) 1.72 Stokes # (Auto) 1.4 H Eos # (Auto) 0.0 Baso # (Auto) 0.0 Abs Immat Gran (auto) 0.05 H Absolute Neuts (auto) 9.5 H Absolute Nucl
== END 2020-07-21 18:07 | disposition home health service (06) | DRG 470 ==
LOC: ANH2MED 07-21 02:47
PROVIDERS: Admitting Provider Orthopaedic Surgery; PCP Internal Medicine; Visit Provider Nurse Practitioner Family
PROC: 0SRB04Z Replacement of Left Hip Joint with Ceramic on Polyethylene Synthetic Substitute, Open Approach (ICD-10-PCS; CPT 27130; principal; 2020-07-20 07:30)
DX: M16.12 Unilateral primary osteoarthritis, left hip (principal); M05.79 Rheumatoid arthritis with rheumatoid factor of multiple sites without organ or systems involvement; E03.9 Hypothyroidism, unspecified; E78.00 Pure hypercholesterolemia, unspecified; E11.9 Type 2 diabetes mellitus without complications; L70.9 Acne, unspecified; Z79.84 Long term (current) use of oral hypoglycemic drugs; Z79.899 Other long term (current) drug therapy
CPT/HCPCS: 36415; 73501; 80048; 85014; 85018; 85025; 97110; 97116; 97161; 97165; 97530; 97535; A9270; C1776; J0171; J0690; J1100; J1170; J1815; J1885; J2250; J2270; J2370; J2405; J2704; J2710; J2795; J3010; J7030; J7120

== ENCOUNTER → 2020-10-18 14:46 | Outpatient (CLI) | payer OTHER, BC, SELFPAY ==
--- NOTE | ~2020-10-18 | MM_ITS ---
EXAMINATION: MM screening [facility] BI w [facility] HISTORY: Screening mammogram TECHNIQUE: Craniocaudal and mediolateral oblique 3-D tomosynthesis images were obtained and synthetic 2-D images were generated. CAD analysis was submitted and interpreted. COMPARISON: 06/19/2019, 06/17/2018, 05/09/2017 BREAST PARENCHYMAL COMPOSITION: There are scattered areas of fibroglandular density. FINDINGS: There is no evidence of suspicious mass, calcification, or architectural distortion to sugg est malignancy in either breast. There has been no suspicious interval change. IMPRESSION: 1. No mammographic evidence of malignancy. 2. Recommend routine screening mammography in one year. BI-RADS Category 1: Negative Reviewed, dictated and finalized at location A. ICAL TECHNOLOGIST
== END ==
PROVIDERS: PCP Internal Medicine; Visit Provider Nurse Practitioner
DX: Z12.31 Encounter for screening mammogram for malignant neoplasm of breast (principal)
CPT/HCPCS: 77063; 77067

== ENCOUNTER 2020-12-28 20:20 | Emergency (ER) | payer BC, SELFPAY ==
[2020-12-28] VITALS (17 sets, daily range): BP systolic 112–154; BP diastolic 56–90; PULSE 70–91; RESP 8–20; TEMP 36.1–36.6; O2SAT 92–100
--- NOTE | ~2020-12-28 | XR_ITS ---
EXAMINATION: XR hip LT 2V w AP pelvis DATE: 12/28/2020 22:05 INDICATION: Left hip pain. TECHNIQUE: An anteroposterior view of the pelvis and 2 views of left hip were obtained. COMPARISON: Left hip radiographs 09/22/2020 FINDINGS: There is a total left hip arthroplasty. There is lateral and proximal dislocation of the fe moral component with respect to the acetabular cup. No fracture. No periprosthetic lucency to suggest loosening or infection. There is mild right hip osteoarthritis. There is at least mild lumbar spondy losis. IMPRESSION: 1. Dislocated total left hip arthroplasty. 2. Mild right hip osteoarthritis. Reviewed, dictated and finalized at location A. RDION REPAIRER
--- NOTE | ~2020-12-28 | XR_ITS ---
EXAMINATION: XR hip LT 1V DATE: 12/28/2020 23:59 INDICATION: Left hip dislocation status post reduction. TECHNIQUE: A single view of left hip was obtained. COMPARISON: Left hip radiographs 12/28/2020 FINDINGS: There is a total left hip arthroplasty in near-anatomic alignment. No fracture. No peripros thetic lucency to suggest loosening or infection. IMPRESSION: 1. Total left hip arthroplasty in near-anatomic alignment. Reviewed, dictated and finalized at location A. Y COOKER HELPER
--- NOTE | 2020-12-28 21:51 | ED.EXTPRO ---
HPI - Extremity Problem General Chief complaint: Extremity Problem,Nontraumatic Stated complaint: possible hip dislocation Time Seen by Provider: 12/28/20 21:18 Source: patient Mode of arrival: EMS Limitations: no limitations History of Present Illness HPI Narrative: A 65-year-old female comes into the emergency department after twisting the wrong way and potentially dislocating her hip. Patient states that she had a hip replacement done in July of last year. Patient states that this first time she has done this. She notes that she was turning felt a pop and her hip give out. She does now note exquisite pain and is unable to bear weight on that side. She denies any numbness or tingling in the affected extremity. Related Data Home Medications Medication Instructions Recorded Confirmed multivitamin 1 tablet PO DAILY 12/21/19 09/22/20 omega-3 fatty acids 1,000 mg 1,000 mg PO DAILY 12/21/19 09/22/20 capsule folic acid 1 mg tablet 2 mg PO DAILY 01/06/20 09/22/20 ibuprofen 800 mg tablet 800 mg PO TID 01/06/20 09/22/20 methotrexate sodium 2.5 mg tablet 8 mg PO WEEKLY tablet 01/06/20 09/22/20 spironolactone 100 mg tablet 100 mg PO DAILY 01/06/20 09/22/20 magnesium 30 mg PO DAILY 03/14/20 09/22/20 cholecalciferol (vitamin D3) 100 100 mcg PO DAILY 05/03/20 09/22/20 mcg (4,000 unit) capsule flaxseed oil 1,000 mg capsule 1,000 mg PO DAILY 05/03/20 09/22/20 melatonin 3 mg PO HS PRN 07/07/20 09/22/20 Allergies Allergy/AdvReac Type Severity Reaction Status Date / Time No Known Allergies Allergy Verified 12/28/20 20:37 Review of Systems Review of Systems: Narrative: CONSTITUTIONAL: Denies fever, chills, or sweats. EYES: Denies visual changes, redness, or discharge. ENT: Denies rhinorrhea, congestion, sore throat, or otalgia. CARDIOVASCULAR: Denies chest pain, palpitations, or edema. RESPIRATORY: Denies cough or dyspnea. GASTROINTESTINAL: Denies abdominal pain, nausea, vomiting, or diarrhea. GENITOURINARY: Denies dysuria or hematuria. SKIN: Denies rash or itching. MUSCULOSKELETAL: Denies back pain, joint pain, or myalgia. Endorses left hip pain NEUROLOGIC: Denies headache, numbness, dizziness, or weakness. PSYCHIATRIC: Denies anxiety or depression. [facility] Past Medical History Medical History Acne Adult hypothyroidism Arthritis Degenerative joint disease of left hip High cholesterol Left hip pain Mixed hyperlipidemia Mixed hyperlipidemia Ptosis of both eyelids surgery to fix her eyes. Rheumatoid arthritis she sees rheumatology Status post hysteroscopy Type 2 diabetes mellitus without complication, with no history of insulin use on oral medication Surgical History Surgical History History of eyelid surgery to fix the ptosis History of total left hip arthroplasty Presence of left artificial hip joint Family History Family History Mother Family history of osteoarthritis Family history of heart disease in male family member before age 55 Grandparent Family history of malignant neoplasm of breast Family history of coronary artery disease Father Family history of coronary artery disease Other Diabetes mellitus Heart disease Social History Social History Social History: she is the electrical tech/project manager for [employer] She is [place] and SHE does not have a durable power transactional attorney for healthcare. THE PATIENT IS A FULL CODE. She has no children. She occasionally has a a glass or 2 of wine. No tobacco, marijuana or illicit drugs. Smoking status: Never smoker Second hand tobacco smoke exposure: No Additional smoking assessment comments: DENIES ANY FORM OF TOBACCO USE Alcohol intake: current Drinks per week: 4 Substance use: never Substance use type: does not use Spiritual care conc
--- NOTE | 2020-12-28 22:02 | PC.NURSE ---
Pt in xray,
[2020-12-28] MEDS: HYDROmorphone HCL INJ (*CRX) 1 MG/ML SYR IV PUSH (22:08)
--- NOTE | 2020-12-28 22:49 | PC.NURSE ---
Consent obtained for left hip reduction.
--- NOTE | 2020-12-28 22:50 | PC.NURSE ---
VERBAL ORDER PER DR DELCID ZOFRAN 4MG IV.
[2020-12-28] MEDS: ONDANSETRON INJ 4 MG/2 ML VIAL (22:52)
--- NOTE | 2020-12-28 23:15 | PC.NURSE ---
Hip reduction held off until nausea under control. Propofol and Ketamine given to charge nurse (JENNI Stack) until procedure.
--- NOTE | 2020-12-28 23:25 | PC.NURSE ---
Received report from Asha ARTEAGA -assumed care. Patient needs left hip reduction via moderate sedation yet. Consents already obtained
--- NOTE | 2020-12-28 23:35 | PC.NURSE ---
Report to JENNI Duncan.
[2020-12-28] MEDS: KETAMINE HCL (*CRX) 500 MG/10 ML VIAL 40 MG IV PUSH (23:47)
[2020-12-28] MEDS: PROPOFOL IV EMULSION 200 MG/20 ML VIAL 40 MG IV PUSH (23:48)
[2020-12-29 00:08] VITALS: BP 129/77; PULSE 75; RESP 13; TEMP 36.6; O2SAT 100
[2020-12-29 00:19] VITALS: BP 140/66; PULSE 71; RESP 10; O2SAT 97
[2020-12-29 00:35] VITALS: BP 119/61; PULSE 71; RESP 14; TEMP 36.6; O2SAT 97
== END 2020-12-29 00:55 | disposition home or self-care (01) ==
PROVIDERS: Emergency Provider Emergency Medicine; PCP Internal Medicine
DX: T84.021A Dislocation of internal left hip prosthesis, initial encounter (principal)
CPT/HCPCS: 27265; 73501; 73502; 96374; 96375; 99285; J1170; J2405; J2704

== ENCOUNTER → 2021-12-14 12:58 | Outpatient (CLI) | payer MEDICARE, SELFPAY ==
--- NOTE | ~2021-12-14 | MM_ITS ---
EXAMINATION: MM screening [facility] BI w [facility] HISTORY: Screening mammogram TECHNIQUE: Craniocaudal and mediolateral oblique 3-D tomosynthesis images were obtained and synthetic 2-D images were generated. CAD analysis was submitted and interpreted. COMPARISON: 10/18/2020, 06/19/2019, 06/17/2018 BREAST PARENCHYMAL COMPOSITION: There are scattered areas of fibroglandular density. FINDINGS: Scattered benign-appearing calcifications are present. There is no evidence of suspicious m ass, calcification, or architectural distortion to suggest malignancy in either breast. There has bee n no suspicious interval change. IMPRESSION: 1. No mammographic evidence of malignancy. 2. Recommend routine screening mammography in one year. BI-RADS Category 2: Benign finding(s). Reviewed, dictated and finalized at location A. HAULER OPERATOR
== END ==
PROVIDERS: PCP Internal Medicine; Visit Provider Nurse Practitioner
DX: Z12.31 Encounter for screening mammogram for malignant neoplasm of breast (principal)
CPT/HCPCS: 77063; 77067

== ENCOUNTER 2022-10-19 10:55 | Emergency (ER) | payer MEDICARE, OTHER, SELFPAY ==
--- NOTE | ~2022-10-19 | XR_ITS ---
Clinical Indication: Cough PA and lateral views of the chest: Comparison: None Findings: The lungs are clear, without evidence of focal consolidation or pleural effusion. Cardiome diastinal silhouette is within normal limits. Bones and soft tissues are unremarkable. Impression: Normal chest. Reviewed, dictated and finalized at location [] YARN SORTER Impression: Normal chest.
[2022-10-19 11:13] VITALS: BP 131/78; PULSE 66; RESP 18; TEMP 36.7; O2SAT 100
--- NOTE | 2022-10-19 11:29 | ED.URI ---
HPI - URI/Sore Throat General Chief Complaint: Upper Respiratory Infection Stated Complaint: COLD/FLU Time Seen by Provider: 10/19/22 11:29 Source: patient and RN notes reviewed Mode of arrival: ambulatory Limitations: no limitations History of Present Illness HPI Narrative: 67-year-old female presents concern for cough for 10 days. She reports she had fever the 1st day of symptoms, had nasal congestion and runny nose that have resolved her cough persists. She reports worse later in the day when lying down. Reports she has been taking Mucinex MD elicited complaint: cough and sore throat Related Data Home Medications Medication Instructions Recorded Confirmed folic acid 1 mg tablet 1 mg PO DAILY 10/19/22 10/19/22 ibuprofen 800 mg tablet 800 mg PO TID 10/19/22 10/19/22 levothyroxine 88 mcg tablet 88 mcg PO DAILY 10/19/22 10/19/22 metformin 1,000 mg tablet 1,000 mg PO BID 10/19/22 10/19/22 methotrexate sodium 2.5 mg tablet 2.5 mg PO DAILY 10/19/22 10/19/22 rosuvastatin 40 mg tablet 40 mg PO DAILY 10/19/22 10/19/22 spironolactone 100 mg tablet 100 mg PO DAILY 10/19/22 10/19/22 zolpidem 10 mg tablet 10 mg PO HS PRN Insomnia 10/19/22 10/19/22 Allergies Allergy/AdvReac Type Severity Reaction Status Date / Time No Known Allergies Allergy Verified 10/19/22 11:36 Review of Systems Review of Systems: CONSTITUTIONAL: Denies malaise, chills, sweats, or fever. EYES: Denies visual changes, redness, or discharge. ENT: Denies rhinorrhea, congestion, sinus pain, otalgia and sore throat. CARDIOVASCULAR: Denies chest pain, palpitations, or edema. RESPIRATORY: Reports persistent cough. Denies dyspnea. GASTROINTESTINAL: Denies abdominal pain, nausea, vomiting, diarrhea SKIN: Denies rash or itching. MUSCULOSKELETAL: Denies myalgia. NEUROLOGIC: Denies headache. All systems reviewed & are unremarkable except as noted in HPI and below PMFSH Comments At time of signature, agree with nursing past medical, surgical, social and family history. There is no relevant family history pertinent to the presenting complaint Exam Narrative: GENERAL: Well-appearing, well-nourished, and in no acute distress. HEAD: Normocephalic EYES: PERRLA, conjunctivae clear ENT: Nares clear. Mucous membranes moist. TM pearly ronquillo with dull light reflex bilaterally; no tragal tenderness. Oropharynx not erythematous without lesions. Tonsils not enlarged and without exudate, no drooling, no hoarseness, no trismus, uvula midline. NECK: Supple. No lymphadenopathy CHEST: Right lung Clear to auscultation, breath sounds diminished in the left lung with rhonchi noted. No wheezing, rales, or stridor. No respiratory distress, speaks in full sentences. HEART: Regular rate and rhythm. No murmur heard. SKIN: Warm, dry, no rash. NEURO: Alert and oriented x3. PSYCH: Normal mood and affect Course Course Emergency Course: Patient is aware of diagnosis, understands and agrees to treatment plan. Anticipatory guidance given. Patient agrees to follow-up as directed and is aware of reasons to seek care at the emergency department. Portions of this record may have been created with voice recognition software Level of Care: Express Care Visit Vital Signs Vital signs: Vital Signs Temperature 98.0 F 10/19/22 11:13 Pulse Rate 66 10/19/22 11:13 Respiratory Rate 18 10/19/22 11:13 Blood Pressure 131/78 10/19/22 11:13 Pulse Oximetry 100 10/19/22 11:13 Oxygen Delivery Room Air 10/19/22 11:13 Temperature 98.0 F 10/19/22 11:13 Pulse Rate 66 10/19/22 11:13 Respiratory Rate 18 10/19/22 11:13 Blood Pressure 131/78 10/19/22 11:13 Pulse Oximetry 100 10/19/22 11:13 Oxygen Delivery Room Air 10/19/22 11:13 Reviewed. MDM - URI/Sore Throat MDM Narrative Medical decision making narrative: Differential diagnosis considered: [place] virus, strep pharyngitis, allergic rhinitis, upper respiratory tract infection, sinusitis, rhinosinusitis, nasopharyngiti
== END 2022-10-19 11:58 | disposition home or self-care (01) ==
PROVIDERS: Emergency Provider Nurse Practitioner; PCP Internal Medicine
DX: J40 Bronchitis, not specified as acute or chronic (principal); M06.9 Rheumatoid arthritis, unspecified; E11.9 Type 2 diabetes mellitus without complications; E03.9 Hypothyroidism, unspecified
CPT/HCPCS: 71046; 99203; G0463

== ENCOUNTER → 2022-12-19 12:15 | Outpatient (CLI) | payer MEDICARE, OTHER, SELFPAY ==
--- NOTE | ~2022-12-19 | MM_ITS ---
EXAMINATION: MM screening [facility] BI w [facility] HISTORY: Screening mammogram TECHNIQUE: Craniocaudal and mediolateral oblique 3-D tomosynthesis images were obtained and synthetic 2-D images were generated. CAD analysis was submitted and interpreted. COMPARISON: December 14, 2021, October 18, 2020, June 19, 2019 bilateral screening mammogram [facility] BREAST PARENCHYMAL COMPOSITION: There are scattered areas of fibroglandular density. FINDINGS: Scattered bilateral benign calcifications. There is no evidence of suspicious mass, calcifi cation, or architectural distortion to suggest malignancy in either breast. There has been no suspici ous interval change. IMPRESSION: 1. No mammographic evidence of malignancy. 2. Recommend routine screening mammography in one year. BI-RADS Category 2: Benign finding(s). Reviewed, dictated and finalized at location A. T ASSOCIATE
--- NOTE | ~2022-12-19 | DEXA_ITS ---
Bone Density Report Name: MARY GAYLE Age: 67 Sex: Female Ethnicity: White Date of : 1955 Indication: postmenopausal; screening for osteoporosis; parental hip fracture; height loss; rheumatoid arthritis; Referring Provider: Edita, Lindsey Study: Bone densitometry was performed. Exam Date: December 19, 2022 Accession number: [id number] Bone Density: Region BMD T-score Z-score Classification AP Spine (L1, L2, L3) 1.216 1.8 3.6 Normal Femoral Neck (Right) 0.879 0.3 1.9 Normal Total Hip (Right) 0.945 0.0 1.3 Normal World Health Organization criteria for BMD impression classify patients as: Normal (T-score at or above -1.0), Osteopenia (T-score between -1.0 and -2.5), or Osteoporosis (T-score at or below -2.5). 10-year Fracture Risk: FRAX not reported because: All T-scores for Spine Total, Hip Total, Femoral Neck at or above -1.0 Previous Exams: Region Exam Age BMD T-score BMD Change BMD Change Date g/cm2 vs Baseline vs Previous AP Spine(L1, L2, L3) 12/19/2022 67 1.216 1.8 0.003 0.046* 06/17/2018 62 1.171 1.4 -0.043* -0.046* 12/30/2013 58 1.216 1.8 0.003 0.003 06/25/2011 55 1.213 1.8 Total Hip(Right) 12/19/2022 67 0.945 0.0 -0.100* -0.039* 06/17/2018 62 0.984 0.3 -0.061* -0.014 12/30/2013 58 0.998 0.5 -0.047* -0.047* 06/25/2011 55 1.045 0.8 *Denotes significance at 95% confidence level, LSC for AP Spine = 0.022 g/cm2, LSC for Total Hip = 0.027 g/cm2 Clinical Information Provided by Patient: Parent has had a hip fracture Has rheumatoid arthritis Has used the following medications: Vitamin D Patient maximum height was 68 Menopause Age: 51 Drinks caffeinated beverages Onset of menses at age 14 Number of children 0 Impression: The patient has normal bone mass. The patient has risk factors, including: parental hip fracture. The BMD for the Total Hip(Right) decreased, changing by -0.039 since the last DXA exam. Discussion: BONE DENSITY IS ABOVE THE MINIMUM DESIRABLE LEVEL AT ALL SKELETAL SITES TESTED. This patient?s bone mineral density is above the minimum desirable level (T-score -1.0 or better) at all sites measured. The patient should follow a healthful lifestyle (good nutrition with adequate calcium and vitamin D, and appropriate weight-bearing exercise). Follow-Up: Consider repeating this study in 3 to 4 years to reassess this patient's status, or sooner if
== END ==
PROVIDERS: PCP Internal Medicine; Visit Provider Nurse Practitioner
DX: Z12.31 Encounter for screening mammogram for malignant neoplasm of breast (principal); Z78.0 Asymptomatic menopausal state
CPT/HCPCS: 77063; 77067; 77080

== ENCOUNTER → 2023-12-24 10:10 | Outpatient (CLI) | payer MEDICARE, SELFPAY ==
--- NOTE | ~2023-12-24 | MM_ITS ---
EXAMINATION: MM screening [facility] BI w [facility] HISTORY: Screening TECHNIQUE: Craniocaudal and mediolateral oblique 3-D tomosynthesis images were obtained and synthetic 2-D images were generated. CAD analysis was submitted and interpreted. COMPARISON: No prior mammogram is available for comparison at this institution. BREAST PARENCHYMAL COMPOSITION: There are scattered areas of fibroglandular density. FINDINGS: There is no evidence of suspicious mass, calcification, or architectural distortion to sugg est malignancy in either breast. There has been no suspicious interval change. IMPRESSION: 1. No mammographic evidence of malignancy. 2. Recommend routine screening mammography in one year. BI-RADS Category 1: Negative Reviewed, dictated and finalized at location A. ENT CASE MANAGER
== END ==
PROVIDERS: PCP Nurse Practitioner; Visit Provider Nurse Practitioner
DX: Z12.31 Encounter for screening mammogram for malignant neoplasm of breast (principal)
CPT/HCPCS: 77063; 77067

== ENCOUNTER 2024-05-21 09:47 | Outpatient (CLI) | payer MEDICARE, SELFPAY ==
--- NOTE | ~2024-05-21 | XR_ITS ---
Right Hand Technique: PA, oblique, and lateral views were obtained. Clinical History: Rheumatoid arthritis Findings: No acute fracture or dislocation is seen. There is apparent severe osteoarthritis of the ra diocarpal articulations, intercarpal joints, and first and second metacarpophalangeal joints. There a re moderate degenerative changes at the carpometacarpal articulations. No definite erosive change onur ntified. Soft tissues are unremarkable. 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 No definite erosive changes are identified. Reviewed, dictated and finalized at location M. 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 No definite erosive changes are identified.
--- NOTE | ~2024-05-21 | XR_ITS ---
Left Hand Technique: PA and lateral views were obtained. Clinical History: Rheumatoid arthritis Findings: No acute fracture or dislocation is seen. There is severe osteoarthritic change throughout the radiocarpal and carpal joints with marked joint space narrowing and sclerosis, but no definite er osive change. There is advanced osteoarthritic change of the second MCP joint. Soft tissues are unrem arkable. 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 No definite erosive change identi fied. Reviewed, dictated and finalized at location M. 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 No definite erosive change identified.
--- NOTE | ~2024-05-21 | XR_ITS ---
Left foot Technique: AP and lateral views were obtained. Clinical History: Rheumatoid arthritis Findings: No acute fracture or dislocation is seen. There is postoperative change of the first metata rsal and first proximal pharynx. There is moderate to advanced degenerative change of the first MTP j oint. No erosive change identified. There is advanced degenerative change of the talonavicular articu lation. Soft tissues are unremarkable. Impression: Advanced degenerative change of the talonavicular articulation and first MTP joint. No erosive change identified. Postoperative changes of the great toe, as above. Reviewed, dictated and finalized at location M. Impression: Advanced degenerative change of the talonavicular articulation and first MTP brandon int. No erosive change identified. Postoperative changes of the great toe, as above.
--- NOTE | ~2024-05-21 | XR_ITS ---
Right foot Technique: AP and lateral views were obtained. Clinical History: Rheumatoid arthritis Findings: No acute fracture or dislocation is seen. There is orthopedic surgical change at the first metatarsal and first proximal phalanx. There is severe osteoarthritis of the talonavicular articulati on and subtalar joint.. Joint spaces are preserved without erosive or degenerative change. Soft tissu es are unremarkable. 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 Postoperative change of the first metatarsal and first proximal phalanx. Reviewed, dictated and finalized at location M. 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 Postoperative change of the first metatarsal and first proximal phalanx.
== END 2024-05-21 09:48 ==
DX: M06.9 Rheumatoid arthritis, unspecified (principal); M19.071 Primary osteoarthritis, right ankle and foot; M19.072 Primary osteoarthritis, left ankle and foot; M19.041 Primary osteoarthritis, right hand; M19.042 Primary osteoarthritis, left hand
CPT/HCPCS: 73120; 73620

== ENCOUNTER 2024-12-25 13:21 | Outpatient (CLI) | payer MEDICARE, SELFPAY ==
--- NOTE | ~2024-12-25 | MM_ITS ---
EXAMINATION: MM screening corrine BI w [facility] HISTORY: Screening TECHNIQUE: Craniocaudal and mediolateral oblique 3-D tomosynthesis images were obtained and synthetic 2-D images were generated. CAD analysis was submitted and interpreted. COMPARISON: Comparison to multiple prior studies sequentially, with oldest reviewed study dated 06/17. BREAST PARENCHYMAL COMPOSITION: Not dense: There are scattered areas of fibroglandular density. FINDINGS: There is no evidence of suspicious mass, calcification, or architectural distortion to sugg est malignancy in either breast. There has been no suspicious interval change. IMPRESSION: 1. No mammographic evidence of malignancy. 2. Recommend routine screening mammography in one year. BI-RADS Category 1: Negative Reviewed, dictated and finalized at location L. [employer]
== END 2024-12-25 13:22 | disposition home or self-care (01) ==
PROVIDERS: PCP Internal Medicine; Visit Provider Nurse Practitioner
DX: Z12.31 Encounter for screening mammogram for malignant neoplasm of breast (principal)
CPT/HCPCS: 77063; 77067